=== PATIENT | female | born 1950 | race Hispanic/Latino ===

== ENCOUNTER 2022-04-19 06:50 | Day surgery (SDC) | payer MEDICARE, OTHER ==
[2022-04-17 11:03] LABS: LYMPHOCYTES % (AUTO) 27.7 % (21.0-51.0); MEAN CORPUSCULAR HEMOGLOBIN 29.7 pg (27.0-33.0); MEAN CORPUSCULAR HGB CONC 33.6 g/dL (32.0-36.0); MEAN CORPUSCULAR VOLUME 88.2 fL (79-99); MONOCYTES % (AUTO) 11.6 % (3.0-13.0); NEUTROPHILS % (AUTO) 56.7 % (40.0-77.0); PLATELET COUNT (AUTO) 340 K/uL (130-400); RED BLOOD CELL COUNT(AUTO) 4.08 MIL/uL (4.00-5.50); RED CELL DISTRIBUTION WIDTH 13.2 % (11.0-15.5); WHITE BLOOD COUNT (AUTO) 7.1 K/uL (4.8-10.8)
[2022-04-17 11:11] LABS: ALBUMIN 3.1 g/dL (3.5-5.0); CREATININE 0.7 mg/dL (0.5-1.5); CRP QUANTITATIVE 10.2 mg/L (0.00-9.0); POTASSIUM 4.7 mmol/L (3.5-5.1)
[2022-04-18 10:24] VITALS: BP 118/59
[2022-04-19] VITALS (11 sets, daily range): BP systolic 96–127; BP diastolic 51–75
[~2022-04-19] VITALS: Ht 149.9 cm; Wt 82.0 kg
[~2022-04-19 06:50] MED LIST: AMLO-258 PO; BUPIVACAINE/PF 0.5% 10ML VIAL ONE; CEFAZOLIN SODIUM 1 GM VIAL IVP SCH; ETAN25SY SQ; LISI20TA24 PO; MELO-106 PO; METF-444 PO
[2022-04-19] MEDS ORDERED: 0.9%NACL 1000ML 1,000 ML IV ONE (07:27)
[2022-04-19] MEDS ORDERED: PROPOFOL 10 MG/ML 20ML VIAL IV ONE (07:48)
[2022-04-19] MEDS ORDERED: FENTANYL CITRATE PF 50 MCG/1 ML 2ML VIAL ONE (07:48)
[2022-04-19] MEDS ORDERED: MIDAZOLAM HCL 1 MG/ML 2ML VIAL ONE (07:48)
[2022-04-19] MEDS ORDERED: IOPAMIDOL 10 ML VIAL IT ONE (08:21)
== END 2022-04-19 09:50 | disposition home or self-care (01) ==
LOC: DAH 06:50
PROVIDERS: ATTEND Student in an Organized Health Care Education/Training Program
DX: M16.0 Bilateral primary osteoarthritis of hip (principal); M70.61 Trochanteric bursitis, right hip; M17.0 Bilateral primary osteoarthritis of knee; I10 Essential (primary) hypertension; E11.9 Type 2 diabetes mellitus without complications; F41.9 Anxiety disorder, unspecified; Z98.890 Other specified postprocedural states; Z98.51 Tubal ligation status; Z90.49 Acquired absence of other specified parts of digestive tract; Z87.891 Personal history of nicotine dependence; Z79.84 Long term (current) use of oral hypoglycemic drugs; Z79.899 Other long term (current) drug therapy; Z79.01 Long term (current) use of anticoagulants
CPT/HCPCS: 87426; 82040; 80048; 85025; 84134; 86140; 36415; 20610; 82948; 73522; A4663; J3010; J7030; J3490; J2250; J2704; J1030 ×2; Q9966; A5120; A4215; A4223; A4222; A4221

== ENCOUNTER → 2024-08-09 | Outpatient (CLI) | payer MEDICARE, OTHER ==
[~2024-08-09] MED LIST changes: -BUPIVACAINE/PF 0.5% 10ML VIAL ONE; -CEFAZOLIN SODIUM 1 GM VIAL IVP SCH; +REGADENOSON 0.4 MG/5 ML PF SYG IVP ONE
--- NOTE | 2024-08-10 17:13 | HMCSR ---
APPROVED REPORT TEST INDICATIONS Dyspnea , SURGICAL CLEARANCE The imaging protocol used to acquire images was Rest Tc-99m/stress Tc-99m 1 day Consent: The procedure was explained and understood by the patient. Informerd consent was witnessed Roge Hickman [facility] First, low dose rest was performed then high dose stress. RESTING DATA: The resting ekg shows: NSR Rest SPECT myocardial perfusion imaging was performed in supine position minutes following the intra venous injection of 10 mCi of Tc-99 Sestamibi. Time of rest injection: 1210 Date: 08/09/2024 PHARMACOLOGIC STRESS: Pharmacologic stress test was performed by injecting regadenoson 0.4 mg IV push followed by the intra venous injection of 23 mCi of Tc-99 Sestamibi. Time of stress injection: 1420 Date: 08/09/2024 Heart Rate at time of stress injection: 63 bpm. The images were gated to evaluate regional wall motion and calculate left ventricular ejection fracti on. STRESS DETAILS Reason for Termination: Infusion complete Stress Symptoms: Dyspnea, Flushing Max HR Achieved: 103 bpm % of APMHR Achieved: 83 Max Blood Pressure: 134/71 mmHg Stress ECG: NSR Study quality was excellent. Lung uptake was Normal. LEFT VENTRICLE The left ventricular ejection fraction was calculated to be 70%.TID = . LV PERFUSION The rest and stress images show normal perfusion. IMPRESSION Normal pharmacologic nuclear stress test. Conclusion Normal pharmacologic nuclear stress test. NO ischemia NO infarct
== END | disposition home or self-care (01) ==
LOC: RAH 11:24
PROVIDERS: ATTEND Internal Medicine Cardiovascular Disease
DX: R06.02 Shortness of breath (principal); R06.00 Dyspnea, unspecified; R23.2 Flushing
CPT/HCPCS: 78452; 93017; J2785; A9500 ×2